=== PATIENT | male | born 1945 | race Caucasian/White ===

== ENCOUNTER 2017-09-26 12:33 | Inpatient (IN) | payer MEDICARE, OTHER ==
[~2017-09-26] VITALS: Ht 180.3 cm; Wt 66.0 kg
[~2017-09-26 12:33] MED LIST: ASPIRIN325 PO; ATORVASTATIN CA40 MG PO; BACLOFEN 10MG T10 MG PO; CARVEDILOL12.5 MG PO; CIPRO500 MG PO; COZAAR 25 MG TA25 M2 PO; FLAGYL500 MG PO; FLORASTOR250 MG PO; FOLIC ACID1 MG PO; HYDRALAZINE 2525 MG PO; LABETALOL HCL100 MG PO; LIORESAL 10 MG10 MG PO; LIPITOR40 MG PO; MIRALAX17 GM PO; PEPCID20 MG PO; PHENAZOPYRIDIN200 M2 PO; PROVIGIL 200 M200 M1 PO; SENNA PLUS TAB1 EACH PO; TRAMADOL 50 MG50 MG PO; TYLENOL325 MG PO; ZOLOFT50 MG PO
[2017-09-26 12:34] VITALS: BP 157/90
[2017-09-26] MEDS ORDERED: LIPITOR40 MG PO (13:11)
[2017-09-26] MEDS ORDERED: FOLIC ACID1 MG PO (13:11)
[2017-09-26] MEDS ORDERED: COZAAR 50 MG TA50 M1 PO (13:11)
[2017-09-26 13:13] LABS: ABSOLUTE BASOPHILS 0.1 thou/uL (0.0-0.2); ABSOLUTE EOSINOPHILS 0.2 thou/uL (0.0-0.7); ABSOLUTE LYMPHOCYTES 1.4 thou/uL (0.8-5.3); ABSOLUTE MONOCYTES 0.5 thou/uL (0.0-1.2); ABSOLUTE NEUTROPHILS 4.9 thou/uL (1.6-8.1); BASOPHILS 0.9 %; EOSINOPHILS 2.4 %; HEMATOCRIT 37.7 % (42.0-52.0); HEMOGLOBIN 12.5 gm/dL (14.0-18.0); LYMPHOCYTES 20.2 %; MCH 28.4 pg (26.0-34.0); MCV 85.9 fL (80.0-100.0); MONOCYTES 7.3 %; MPV 8.6 fl. (7.2-11.1); NUCLEATED RBCS 0 /100WBC; PLATELET COUNT* 160 thou/uL (150-400); POLYS 69.2 %; RBC 4.39 mil/uL (4.50-6.00); RDW-CV 13.8 % (10.5-14.5); WBC 7.1 thou/uL (4.0-11.0)
[2017-09-26 13:17] LABS: CALCIUM 8.2 mg/dL (8.5-10.1); CREATININE 1.1 mg/dL (0.6-1.3); POTASSIUM 3.4 mmol/L (3.5-5.1)
[2017-09-26 13:32] LABS: ALBUMIN 2.7 g/dL (3.4-5.0); MAGNESIUM 1.8 mg/dL (1.8-2.4); TOTAL BILIRUBIN 0.5 mg/dL (<0.1-1.0); TOTAL PROTEIN 6.8 g/dL (6.4-8.2); TROPONIN-I LEVEL 0.25 ng/mL (<0.06)
[2017-09-26 14:01] LABS: BE 1.3 mmol/L (-2 to +3); HCO3 24.6 mmol/L (22.0-26.0); PCO2 34.3 mmHg (35.0-45.0); pH 7.474 (7.340-7.450)
[2017-09-26 14:02] LABS: PO2 142.4 mmHg (75.0-100.0)
[2017-09-26 14:37] LABS: URINE COLOR YELLOW
[2017-09-26 14:39] LABS: URINE BILIRUBIN NEGATIVE (Negative); URINE BLOOD NEGATIVE (Negative); URINE CLARITY CLEAR; URINE GLUCOSE-RANDOM NEGATIVE (Negative); URINE KETONES NEGATIVE (Negative); URINE LEUKOCYTES-REFLEX NEGATIVE (Negative); URINE NITRITE-REFLEX NEGATIVE (Negative); URINE PROTEIN NEGATIVE (Negative); URINE SPECIFIC GRAVITY >= 1.030 (1.005-1.030); URINE UROBILINOGEN 0.2 E.U./dl (0.2-1.0)
[2017-09-26 16:46] VITALS: BP 188/95
[2017-09-26 16:52] VITALS: BP 197/89
[2017-09-26] MEDS ORDERED: LIORESAL 10 MG10 MG PO (17:28)
[2017-09-26] MEDS ORDERED: PEPCID20 MG PO (17:29)
[2017-09-26] MEDS ORDERED: LIDODERM1 EACH TRANSDERM (17:29)
[2017-09-26 20:00] VITALS: BP 191/97
[2017-09-26 21:49] LABS: ALBUMIN 2.5 g/dL (3.4-5.0); CALCIUM 7.7 mg/dL (8.5-10.1); CREATININE 0.9 mg/dL (0.6-1.3); POTASSIUM 3.6 mmol/L (3.5-5.1); TOTAL BILIRUBIN 0.5 mg/dL (<0.1-1.0); TOTAL PROTEIN 5.9 g/dL (6.4-8.2)
[2017-09-26 22:27] VITALS: BP 188/86
[2017-09-27] VITALS (7 sets, daily range): BP systolic 150–193; BP diastolic 79–92
[2017-09-27 05:47] LABS: HEMATOCRIT 37.3 % (42.0-52.0); MCH 27.9 pg (26.0-34.0); MPV 8.6 fl. (7.2-11.1); NUCLEATED RBCS 0 /100WBC
[2017-09-27 05:58] LABS: ABSOLUTE EOSINOPHILS 0.2 thou/uL (0.0-0.7); ABSOLUTE LYMPHOCYTES 1.1 thou/uL (0.8-5.3); ABSOLUTE MONOCYTES 0.4 thou/uL (0.0-1.2); ABSOLUTE NEUTROPHILS 5.4 thou/uL (1.6-8.1); BASOPHILS 0.7 %; EOSINOPHILS 2.7 %; HEMOGLOBIN 12.2 gm/dL (14.0-18.0); LYMPHOCYTES 15.3 %; MCHC 32.8 g/dL (28.0-37.0); MCV 85.2 fL (80.0-100.0); MONOCYTES 5.7 %; PLATELET COUNT* 139 thou/uL (150-400); POLYS 75.6 %; RBC 4.38 mil/uL (4.50-6.00); WBC 7.1 thou/uL (4.0-11.0)
[2017-09-27 06:02] LABS: PREALBUMIN 15.6 mg/dL (18.0-35.7)
[2017-09-27 06:03] LABS: ANION GAP 10 mmol/L (7-16); BUN 17 mg/dL (7-18); CALCIUM 7.9 mg/dL (8.5-10.1); CHLORIDE 105 mmol/L (98-107); CHOLESTEROL 90 mg/dL (<200); CO2 27 mmol/L (21-32); CREATININE 0.8 mg/dL (0.6-1.3); GLUCOSE 117 mg/dL (70-99); HDL CHOLESTEROL 32 mg/dL (>40); LDL CHOLESTEROL 44 mg/dL (<100); MAGNESIUM 1.5 mg/dL (1.8-2.4); POTASSIUM 3.4 mmol/L (3.5-5.1); SODIUM 142 mmol/L (136-145); TC:HDL 2.8 Ratio (Not establshd); TRIGLYCERIDE 73 mg/dL (<150); VLDL 15 mg/dL (<40)
[2017-09-27 06:06] LABS: SERUM ASSESSMENT Clear
[2017-09-27 09:25] LABS: INR 1.3; PROTIME 12.3 Seconds (9.20-11.50)
--- NOTE | 2017-09-27 14:15 | EKG ---
[place] [address] ELECTROCARDIOGRAM REPORT Name: NADIA FLORES Room: [address] IN .R.#: [id number] Admission: 09/26/17 Attend Phys: Jose Reynolds MD Discharge: 09/27/17 Date of : 43 Report #: [id number] THIS REPORT FOR: //name// [facility] ED Test Date: 2017-09-26 Test Time: 12:36:15 Pat Name: NADIA FLORES Department: Room: [facility] Gender: Commercial Glazier: Jared MANCUSO : 1945 Requested By: Melba Davalos Order Number: [id number] : Nadia Bloom Measurements Intervals [place] Rate: 73 P: 28 [place]: 272 QRS: 23 QRSD: 88 T: 58 QT: 395 QTc: 436 Interpretive Statements Sinus rhythm Prolonged [place] interval Compared to ECG 06/03/2017 06:18:08 Myocardial infarct finding no longer present Electronically Signed On 09-27-2017 14:15:36 CVT RN by Nadia Bloom [email or web address] <ELECTRONICALLY SIGNED> By: Nadia Bloom MD, [facility] 09/27/17 5041 1236 1236 Nadia Bloom MD, [facility] /EPI
== END 2017-09-27 12:08 | disposition short-term general hospital (02) | DRG 64 ==
LOC: M.ERS 12:33 → M.ICU 15:27 → M.TBA-ER 15:27 → M.2W 16:40 → M.ICU 09-27 02:16
PROVIDERS: Personal Emergency Response Attendant; ADMIT Internal Medicine
DX: I62.9 Nontraumatic intracranial hemorrhage, unspecified (principal); G93.40 Encephalopathy, unspecified; I12.9 Hypertensive chronic kidney disease with stage 1 through stage 4 chronic kidney disease, or unspecified chronic kidney disease; N18.3 Chronic kidney disease, stage 3 (moderate); R47.01 Aphasia; R40.4 Transient alteration of awareness; E78.5 Hyperlipidemia, unspecified; Z87.891 Personal history of nicotine dependence; Z86.73 Personal history of transient ischemic attack (TIA), and cerebral infarction without residual deficits; Z79.82 Long term (current) use of aspirin; Z79.899 Other long term (current) drug therapy

== ENCOUNTER 2018-08-07 06:35 | Inpatient (IN) | payer MEDICARE, OTHER, MEDICAID ==
[2018-08-07] VITALS (17 sets, daily range): BP systolic 82–122; BP diastolic 46–77
[~2018-08-07] VITALS: Ht 152.4 cm; Wt 70.8 kg
[~2018-08-07 06:35] MED LIST changes: +COZAAR 50 MG TA50 M1 PO; +LIDODERM1 EACH TRANSDERM
[2018-08-07 07:00] LABS: BE -4.6 mmol/L (-2 to +3); HCO3 18.7 mmol/L (22.0-26.0); PCO2 28.9 mmHg (35.0-45.0); pH 7.429 (7.340-7.450)
[2018-08-07 07:13] LABS: URINE BLOOD 2+ (Negative); URINE CLARITY CLEAR; URINE COLOR YELLOW; URINE GLUCOSE-RANDOM NEGATIVE (Negative); URINE KETONES 1+ (Negative); URINE NITRITE-REFLEX NEGATIVE (Negative); URINE PROTEIN 1+ (Negative); URINE SPECIFIC GRAVITY >= 1.030 (1.005-1.030); URINE UROBILINOGEN 0.2 E.U./dl (0.2-1.0)
[2018-08-07 07:16] LABS: ICTOTEST (BILI CONFIRMATORY) Positive (Negative); URINE BILIRUBIN 1+ (Negative); URINE LEUKOCYTES-REFLEX 2+ (Negative)
[2018-08-07] MEDS ORDERED: SENNA PLUS TAB1 EACH PO (07:20)
[2018-08-07] MEDS ORDERED: LAXATIVE SUPPOS10 MG RECTAL (07:20)
[2018-08-07] MEDS ORDERED: MILK OF MA2400 MG/10 PO (07:20)
[2018-08-07] MEDS ORDERED: ASPER-FLEX85 GM TOP (07:21)
[2018-08-07] MEDS ORDERED: CLONIDINE0.1 TOP (07:21)
[2018-08-07] MEDS ORDERED: NORVASC5 MG PO (07:21)
[2018-08-07 07:25] LABS: CASTS None Seen /LPF (None Seen); CRYSTALS None Seen /LPF (None Seen); MUCUS None Seen strn/LPF (None Seen); SQUAMOUS 0-3 Few /LPF (0-3); URINE RBC 3-10 Few /HPF (0-2); URINE WBC-REFLEX 6-15 Few /HPF (0-5)
[2018-08-07 07:25] LABS: ABSOLUTE MONOCYTES 0.5 thou/uL (0.0-1.2); ABSOLUTE NEUTROPHILS 3.8 thou/uL (1.6-8.1); BASOPHILS 0.4 %; EOSINOPHILS 0.2 %; HEMATOCRIT 34.9 % (42.0-52.0); HEMOGLOBIN 11.2 gm/dL (14.0-18.0); LYMPHOCYTES 19.5 %; MCH 28.4 pg (26.0-34.0); MCHC 32.1 g/dL (28.0-37.0); MCV 88.2 fL (80.0-100.0); MONOCYTES 8.9 %; MPV 8.1 fl. (7.2-11.1); NUCLEATED RBCS 0 /100WBC; PLATELET COUNT* 126 thou/uL (150-400); RBC 3.95 mil/uL (4.50-6.00); RDW-CV 14.7 % (10.5-14.5); WBC 5.3 thou/uL (4.0-11.0)
[2018-08-07 07:34] LABS: CALCIUM 7.7 mg/dL (8.5-10.1); CREATININE 3.2 mg/dL (0.6-1.3); POTASSIUM 4.4 mmol/L (3.5-5.1)
[2018-08-07 07:35] LABS: APTT 34.1 Seconds (25.0-31.3); INR 1.3; PROTIME 13.3 Seconds (9.20-11.50)
[2018-08-07 07:57] LABS: ALBUMIN 2.5 g/dL (3.4-5.0); CK-MB MASS 0.6 ng/mL (<0.5-3.6); TOTAL BILIRUBIN 0.5 mg/dL (<0.1-1.0); TOTAL PROTEIN 6.3 g/dL (6.4-8.2); TROPONIN-I LEVEL 0.37 ng/mL (<0.06)
--- NOTE | 2018-08-07 08:05 | NUR ---
TX BEING GIVEN AT THIS TIME
--- NOTE | 2018-08-07 09:57 | NUR ---
PICC LINE PLACED AT THIS TIME
[2018-08-07 10:46] LABS: PHOSPHORUS* 1.1 mg/dL (2.5-4.9)
[2018-08-07 10:50] LABS: MAGNESIUM 0.3 mg/dL (1.8-2.4)
[2018-08-07 11:53] LABS: MAGNESIUM 1.2 mg/dL (1.8-2.4); PHOSPHORUS* 3.2 mg/dL (2.5-4.9)
--- NOTE | 2018-08-07 12:47 | NUR ---
RIGHT BASILIC VESSEL ACCESSED FOR TRIPLE LUMEN PICC. LINE PRE-TRIMMED TO 39 CM AND ADVANCED TO THE ZERO RAYO WITH NO RESISTANCE MET. UPPER ARM CIRCUMFERENCE ABOVE INSERTION SITE= 11 1/2". SHERLOCK MAGNET AND 3CG CONFIRMATION OF TIP TERMINATION (OK) WAVE SPIKE. INSERTION SITE DRESSED, STYLET REMOVED AND REPORT GIVEN TO VANDANA STILES.
--- NOTE | 2018-08-07 16:53 | 2DMMODE ---
[place] [address] 2 D/M-MODE ECHOCARDIOGRAM Name: NADIA FLORES Room: [address] [place] [facility] [id number] Admission: 08/07/18 Attend Phys: Andrews Norton MD Discharge: Date of : 43 Date of Service: 08/07/18 1652 Report #: [id number] THIS REPORT FOR: //name// APPROVED REPORT Study performed: 08/07/2018 14:14:30 EXAM: Comprehensive 2D, Doppler, and color-flow Echocardiogram Patient Location: In-Patient Room #: [facility] Status: routine BSA: 1.87 HR: 55 bpm BP: 101/62 mmHg Rhythm: NSR Other Information Study Quality: Good Indications Elevated BNP 2D Dimensions IVSd: 15.61 (7-11mm) LVOT Diam: 19.93 (18-24mm) LVDd: 23.80 mm PWd: 13.05 (7-11mm) Ascending Ao: 33.80 (22-36mm) LVDs: 15.86 (25-40mm) Aortic Root: 35.88 mm Volumes Left Atrial Volume (Systole) LA ESV Index: 28.80 mL/m2 Aortic Valve AoV Peak Shaq.: 1.07 m/s AO Peak Gr.: 4.56 mmHg LVOT Max P.81 mmHg AO Mean Gr.: 2.60 mmHg LVOT Mean P.31 mmHg LVOT Max V: 0.84 m/s AO V2 VTI: 15.97 cm LVOT Mean V: 0.53 m/s KARELY (VTI): 3.34 cm2 LVOT V1 VTI: 17.07 cm Mitral Valve E/A Ratio: 0.65 MV Decel. Time: 142.96 ms MV E Max Shaq.: 0.33 m/[place] [address] 2 D/M-MODE ECHOCARDIOGRAM Name: NADIA FLORES Room: [address] IN ..#: [id number] Admission: 08/07/18 Attend Phys: Andrews Norton MD Discharge: Date of : 43 Date of Service: 08/07/18 1652 Report #: [id number] MV PHT: 41.46 ms MVA (PHT): 5.31 cm2 TDI E/Lateral E': 3.67 E/Medial E': 4.13 Medial E' Shaq.: 0.08 m/s Lateral E' Shaq.: 0.09 m/s Pulmonary Valve PV Peak Shaq.: 0.92 m/s PV Peak Gr.: 3.36 mmHg Tricuspid Valve RAP Estimate: 10.00 mmHg TR Peak Gr.: 45.00 mmHg RVSP: 55.00 mmHg PA Pressure: 55.00 mmHg Left Ventricle The left ventricle is normal size. There is normal LV segmental wall motion. Moderate concentric left ventricular hypertrophy. Left ventricular systolic function is vigorous. LVEF is >70%. Transmitral Doppler flow pattern suggests impaired LV relaxation. Right Ventricle Right ventricle is dilated. The right ventricular systolic function is normal. Atria Left atrium is mildly dilated. Right atrium is mildly dilated. Aortic Valve The aortic valve is normal in structure. Trace aortic regurgitation. There is no aortic valvular stenosis. Mitral Valve The mitral valve is normal in structure. There is no mitral valve regurgitation noted. No evidence of mitral valve stenosis. Tricuspid Valve The tricuspid valve is normal in structure. Moderate tricuspid regurgitation. Moderate pulmonary hypertension. Pulmonary artery pressure estimated to be 60 mmHg. Pulmonic Valve The pulmonary valve is normal in structure[place] [address] 2 D/M-MODE ECHOCARDIOGRAM Name: NADIA FLORES Room: [address] IN [facility]#: [id number] Admission: 08/07/18 Attend Phys: Andrews Norton MD Discharge: Date of : 43 Date of Service: 08/07/18 1652 Report #: [id number] regurgitation. Great Vessels The aortic root is normal in size. IVC is dilated. Pericardium Small to moderate sized cirumferential effusion with no evidence of tamponade. <Conclusion> The left ventricle is normal size. Moderate concentric left ventricular hypertrophy. The left ventricle is normal size. Moderate concentric left ventricular hypertrophy. Left ventricular systolic function is vigorous. LVEF is >70%. Transmitral Doppler flow pattern suggests impaired LV relaxation. Right ventricle is dilated. Left atrium is mildly dilated. Right atrium is mildly dilated. Trace aortic regurgitation. Moderate tricuspid regurgitation. Moderate pulmonary hypertension. Pulmonary artery pressure estimated to be 60 mmHg. Small to moderate sized cirumferential effusion with no evidence of tamponade. <ELECTRONICALLY SIGNED> By: Paco Bae MD, FACC 08/07/181651 51 51 Paco Bae MD, FACC /INF
--- NOTE | 2018-08-07 17:29 | EKG ---
[place] [address] ELECTROCARDIOGRAM REPORT Name: NADIA FLORES Room: [address] ADM IN .R.#: [id number] Admission: 08/07/18 Attend Phys: Andrews Norton MD Discharge: Date of : 43 Report #: [id number] THIS REPORT FOR: //name// [facility] ED Test Date: 2018-08-07 Test Time: 06:40:50 Pat Name: NADIA FLORES Department: Room: [facility] Gender: M Category Planner: Syed AJ : 1945 Requested By: Victor Manuel Ayala Order Number: [id number] MD: Paco Bae Measurements Intervals [place] Rate: 66 P: 98 ID: [id number] QRS: 44 QRSD: 90 T: 7 QT: 456 QTc: 478 Interpretive Statements Sinus rhythm Borderline prolonged ID interval Probable anterior infarct, age indeterminate Compared to ECG 09/26/2017 12:36:15 Myocardial infarct finding now present Electronically Signed On 08-07-2018 17:29:06 POCKET OPERATOR by Paco Bae [email or web address] <ELECTRONICALLY SIGNED> By: Paco Bae MD, [facility] 08/07/18 1729 0640 0640 Paco Bae MD, [facility] /EPI
--- NOTE | 2018-08-07 17:36 | NUR ---
PATIENT PROGRESSING TOWARDS GOALS. BLOOD PRESSURES REMAIN SOFT, BUT MAP MAINAINED >65. LEVOPHED NOT NEEDED AT THIS TIME. FLUIDS INFUSING AT 100 ML/HR IN RIGHT UPPER ARM PICC LINE PER EMAR. MAGNESIUM UPON ARRIVAL WA 0.3, RECHECK FOR SUSPICION OF FALSE RESULT. RECHECK WAS 1.2. PER DR HOFF, 3GM MAGNESIUM GIVEN. RECHECK WNL. NO OTHER ELECTROLYTE ABNORMALITIES. PATIENT MORE ALERT, OPENS EYES. DOES SAY SOME WORDS AT THIS TIME. ANSWERS YES AND NO QUESTIONS. PATIENT TURNED Q2H TO MAINTAIN SKIN INTEGRITY. BOTTOM REMAINS INTACT AND BLANCHABLE. PATIENT INCONTIENT. FORMED LIGHT BROWN BOWEL MOVEMENTS X2 TODAY. PATIENT'S PRESENT THROUGHOUT SHIFT. STATED THAT WHEN SHE LEAVES, IF NURSING STAFF CALLS HER WHEN SHE LEAVES AND SHE DOES NOT ANSWER, SHE PREFERS THAT STAFF LEAVES A MESSAGE BECAUSE SOMTIMES SHE TURNS HER PHONE OFF. SHE DENIES CONCERNS ABOUT PATIENT'S CARE AT THIS TIME.
[2018-08-08] VITALS (10 sets, daily range): BP systolic 106–160; BP diastolic 65–94
[2018-08-08 02:27] LABS: ABSOLUTE MONOCYTES 0.7 thou/uL (0.0-1.2); BASOPHILS 0.7 %; EOSINOPHILS 0.3 %; HEMATOCRIT 31.9 % (42.0-52.0); HEMOGLOBIN 10.3 gm/dL (14.0-18.0); LYMPHOCYTES 14.6 %; MCH 28.7 pg (26.0-34.0); MCHC 32.3 g/dL (28.0-37.0); MCV 88.7 fL (80.0-100.0); MONOCYTES 10.3 %; MPV 8.6 fl. (7.2-11.1); NUCLEATED RBCS 0 /100WBC; PLATELET COUNT* 121 thou/uL (150-400); POLYS 74.1 %; RBC 3.59 mil/uL (4.50-6.00); WBC 6.8 thou/uL (4.0-11.0)
[2018-08-08 03:00] LABS: CALCIUM 7.5 mg/dL (8.5-10.1); CREATININE 2.3 mg/dL (0.6-1.3); MAGNESIUM 2.4 mg/dL (1.8-2.4); POTASSIUM 4.2 mmol/L (3.5-5.1)
[2018-08-08 03:02] LABS: TROPONIN-I LEVEL 1.21 ng/mL (<0.06)
--- NOTE | 2018-08-08 03:54 | NUR ---
PAGED CARDIOLOGY ABOUT CRITICAL TROP. PT CURRENTLY DENIES CHEST VINCENT. NO RYTHEM CHANGES ON MONITOR. REMAINS SR. BP 119/72.
--- NOTE | 2018-08-08 06:06 | NUR ---
PATIENT SLOWLY PROGRESSING TOWARDS GOALS. REMAINS NON-VERBAL BUT AROUSIBLE WITH ONE WORDED ANSWERS. AFEBRILE. PT TROP CH ELEVATED PAGED CARDIOLOGY. PT DENIES CHEST PAIN. NO ACUTE HEMODYNAMIC CHANGES. SR RHYTHM ON MONITOR WITH NO CHANGES. PT HAS SANABRIA IN PLACE URINE NOTED ON PAD WHEN TURNING. SANABRIA WAS IRRIGATED. WILL CONTINUE TO MONITOR. BED TO LOWEST POSITION. ALL BED RAILS UP PER PT SAFETY.
--- NOTE | 2018-08-08 10:45 | NUR ---
PT ADMITTED YESTERDAY WITH SEPSIS. NO FAMILY HERE AT THIS TIME, BUT WAS HERE YESTERDAY. PT IS FROM THE [facility] BED. PT IS TOTAL CARE FROM A PREVIOUS STROKE. SPOKE WITH TYRA AT [facility], PLAN IS FOR PT TO RETURN WHEN READY FOR DISCHARGE.
--- NOTE | 2018-08-08 12:33 | EKG ---
[place] [address] ELECTROCARDIOGRAM REPORT Name: SANDRANADIA Ba Room: [address] ADM IN .R.#: [id number] Admission: 08/07/18 Attend Phys: Andrews Norton MD Discharge: Date of : 43 Report #: [id number] THIS REPORT FOR: //name// [facility] Test Date: 2018-08-08 Test Time: 10:14:15 Pat Name: NADIA FLORES Department: Room: [address] Gender: M Tissue Technologist: : 1945 Requested By: Andrews Norton Order Number: [id number] Reading MD: Daniel Bravo Measurements Intervals [place] Rate: 61 P: 81 MO: 320 QRS: 36 QRSD: 84 T: 0 QT: 453 QTc: 457 Interpretive Statements Sinus rhythm Prolonged [place] interval Borderline T wave abnormalities Compared to ECG 08/07/2018 06:40:50 no change Electronically Signed On 08-08-2018 12:33:09 SENIOR NATIONAL ACCOUNT MANAGER by Daniel Bravo [email or web address] <ELECTRONICALLY SIGNED> By: Daniel Bravo MD, [facility] 08/08/18 1233 1014 1014 Daniel Bravo MD, FACC /EPI
[2018-08-09] VITALS: BP 160/85
[2018-08-09 02:28] LABS: ABSOLUTE EOSINOPHILS 0.1 thou/uL (0.0-0.7); ABSOLUTE MONOCYTES 0.7 thou/uL (0.0-1.2); ABSOLUTE NEUTROPHILS 5.4 thou/uL (1.6-8.1); BASOPHILS 0.3 %; EOSINOPHILS 1.4 %; HEMATOCRIT 31.3 % (42.0-52.0); HEMOGLOBIN 10.1 gm/dL (14.0-18.0); LYMPHOCYTES 13.8 %; MCH 28.5 pg (26.0-34.0); MCHC 32.1 g/dL (28.0-37.0); MCV 88.7 fL (80.0-100.0); MONOCYTES 10.2 %; MPV 8.8 fl. (7.2-11.1); NUCLEATED RBCS 0 /100WBC; PLATELET COUNT* 131 thou/uL (150-400); POLYS 74.3 %; RBC 3.53 mil/uL (4.50-6.00); RDW-CV 14.9 % (10.5-14.5); WBC 7.3 thou/uL (4.0-11.0)
[2018-08-09 02:38] LABS: CALCIUM 7.8 mg/dL (8.5-10.1); CREATININE 1.8 mg/dL (0.6-1.3); POTASSIUM 3.5 mmol/L (3.5-5.1)
[2018-08-09 04:00] VITALS: BP 160/80
--- NOTE | 2018-08-09 04:44 | NUR ---
patient progressing towards goals. pt complains of pain in bladder area he reaches for catheter when he is activley urinating. unable to specifically say what the pain feels like d/t his aphasia. changed toribio bc it was leaking around despite irragation and reinflating balloon. bladder scaned pt to make sure catheter was effective showed zero ml of urine in bladder. Placed new toribio pt continued to show signs of pain. no leakage around toribio seen at this time. pt could be experiencing bladder spasms. paged HIMs health information assistant. orders given. will continue to monitor pt. bed to lowest position. recieved q2h turns.
[2018-08-09 07:49] VITALS: BP 162/93
--- NOTE | 2018-08-09 10:37 | CON ---
[address] [address] CONSULTATION Name: NADIA FLORES Room: [address] IN M.R.#: [id number] Admission: 08/07/18 Attend Phys: Andrews Norton MD Discharge: Date of : 43 Report #: [id number] THIS REPORT FOR: //name// CC: Jose Norton DATE OF SERVICE: 08/08/2018 TYPE OF REPORT: Cardiology consultation. HISTORY OF PRESENT ILLNESS: The patient is a 72-year-old black male who I was asked to see in the hospital today after he had an abnormal troponin. The patient actually presented in September of this year with a hemorrhagic stroke and malignant hypertension. He was confused. He was transferred for possible neurosurgical intervention. He has been at [facility] since that time. The patient is nonverbal and bedridden. He has left hemiplegia. He was brought to the Emergency Room yesterday. He apparently was found unresponsive at the [facility]. Paramedics were called. He was aroused. He has had no other complaints. He was felt to be septic. On admission, he was hypotensive. He was given intravenous fluid. Troponin was borderline elevated. I was asked to see him for further evaluation and treatment. The patient has had no recent complaints of chest pain, shortness of breath or syncope. PAST MEDICAL HISTORY: He has actually had a previous stroke. He has had a history of hypertension. MEDICATIONS: [facility], he is on hydralazine, sertraline, losartan, Lipitor, carvedilol, baclofen and aspirin. SOCIAL HISTORY: He is . Former smoker. REVIEW OF SYSTEMS: He has had a history of amyloid anemia and chronic kidney disease. PHYSICAL EXAMINATION: GENERAL: Revealed elderly black male lying in bed. He would mumble a few words. VITAL SIGNS: Blood pressure 120/80, pulse 60 and he is afebrile. HEENT: He is anicteric. Conjunctivae pink. Mucous members appear dry. CHEST: Clear to auscultation. CARDIOVASCULAR: Regular rate and rhythm. ABDOMEN: Soft. EXTREMITIES: Had no edema. SKIN: Dry. Warm. NEUROLOGICAL: He cannot move his left [place] [address] CONSULTATION Name: NADIA FLORES Room: [address] IN [facility].#: [id number] Admission: 08/07/18 Attend Phys: Andrews Norton MD Discharge: Date of : 43 Report #: [id number] RADIOLOGICAL DATA: His ECG showed a sinus rhythm with nonspecific T-wave changes. His workup, he had an echocardiogram done yesterday that showed left ventricular hypertrophy, ejection fraction greater than 65%, biatrial enlargement, moderate pulmonary hypertension and small pericardial effusion. LABORATORY DATA: His lab work, sodium 145, BUN 42 and creatinine 2.3 and it was 1.5 in 2017. His albumin is 2.5. Troponin on admission was 0.37 and it was 1.21 this morning. Previous cholesterol was 90, LDL 44, triglycerides 33 and HDL 32. TSH 2.7. White blood cell count 6.8 and hematocrit 34.9. IMPRESSION AND RECOMMENDATIONS: 1. Cmu-CJ-qzxdajzzx myocardial infarction. Recommend a conservative approach. I would not recommend cardiac catheterization. I would add Plavix. 2. Sepsis. Source unclear. Possible urinary tract infection. 3. Hypertension. The patient has been on angiotensin receptor agustin, calcium agustin and clonidine. Medications are full due to low blood pressure. 4. Hyperlipidemia. The patient is on a statin drug. 5. Chronic kidney disease. 6. Previous stroke. <ELECTRONICALLY SIGNED> By: Daniel Bravo MD, FACC 08/09/18 1037 1106 2111Dchari Bravo MD, FACC /nt
[2018-08-09 11:42] VITALS: BP 161/95
[2018-08-09 15:38] VITALS: BP 194/103
[2018-08-09 20:00] VITALS: BP 165/100
[2018-08-10] VITALS: BP 176/99
[2018-08-10 04:00] VITALS: BP 185/99
--- NOTE | 2018-08-10 05:00 | NUR ---
ASSUMED CARE OF PATIENT AFTER REPORT AT 1930. PT A&0X3. NOT ORIENTED TO PLACE. SLURRING OF SPEECH AND LEFT SIDED WEAKNESS NOTED DUE TO PERVIOUS STROKE. VSS. PHYSICAL ASSESSMENT COMPLETED AND CHARTED. PT ON O2 AT 2L NC WITH 92% O2 SAT. PT TRACING SR 1ST DEG ON TELE. PICC LINE TO RIGHT UPPER ARM PATENT AND INTACT. MEDS GIVEN PER NOV. PT WITH SANABRIA TO DEPENDENT DRAIN. ABLE TO TOLERATE WATER AND ORANGE JUICE WELL. PT RESTED WELL ON BED. DENIES ANY PAIN OR SOA. TURNED PT EVERY 2 HOURS. CALL LIGHT WITHIN REACH. BED IN LOW POSITION. BED ALARM ON.
[2018-08-10 08:20] VITALS: BP 176/99
--- NOTE | 2018-08-10 11:52 | NUR ---
RECEIVED REPORT FROM TIFFANY AND ASSUMED CARE OF PT @ 6140.PT IS A/O X3,VSS,TRACING SR WITH 1ST DEGREE ON THE MONITOR.RIGHT UPPER ARM PICC PATENT WITH PPN INFUSING PER ORDERS.PT IS CALM AND COOPERATIVE WITH NO C/O PAIN AT TIME OF ASSESSMENT.PT IS BEDREST WITH Q2 HOUR POSITION CHANGES.PT LEFT RESTING IN BED WITH CALL LIGHT AND FALL PRECAUTIONS IN PLACE.WILL CONTINUE TO MONITOR.
[2018-08-10 11:59] VITALS: BP 179/97
[2018-08-10 15:54] VITALS: BP 182/109
--- NOTE | 2018-08-10 18:38 | NUR ---
VSS.CARDIAC MONITORING IN PLACE WITH NO CHANGES.PT REMAINS ON 3L O2 NC.IV PATENT WITH PPN INFUSING PER ORDERS.NPO STATUS. MARYAN PATENT AND SECURE.NO C/O PAIN.PT HAS SLEPT MOST OF SHIFT. Q2 HOUR POSITION CHANGES.HOURLY ROUNDING COMPLETED FOR PT SAFETY.CALL LIGHT AND FALL PRECAUTIONS IN PLACE.WILL CONTINUE TO MONITOR FOR DURATION OF SHIFT.
[2018-08-10 20:00] VITALS: BP 202/105
[2018-08-11] VITALS: BP 199/110
[2018-08-11 04:00] VITALS: BP 183/103
--- NOTE | 2018-08-11 04:24 | NUR ---
ASSUMED CARE OF PT AFTER REPORT AT 1930. PT A&OX3. NOT ORIENTED TO PLACE. VSS. PHYSICAL ASSESSMENT COMPLETED AND CHARTED. PT ON O2 AT 3L NC WITH 92% O2 SAT. PT TRACING SR/SB 1ST DEG ON TELE. PT BP 202/105- LABETALOL 10MG GIVEN PER NOV. RECHECKED BP 191/107. DR RILEY INFORMED WITH ORDER TO GIVE ANOTHER 10 MG OF LABETALOL. RECHECKED BP 199/110. PROVIDER INFORMED WITH NO NEW ORDER GIVEN. PT RESTED WELL ON BED. DENIES ANY PAIN OR DISCOMFORT. ABLE TO TOLERATE APPLE JUICE WELL. HOURLY ROUNDING OBSERVED. CALL LIGHT WITHIN REACH. BED IN LOW POSITION.
[2018-08-11 08:00] VITALS: BP 175/94
[2018-08-11 11:15] LABS: ABSOLUTE EOSINOPHILS 0.3 thou/uL (0.0-0.7); ABSOLUTE LYMPHOCYTES 0.9 thou/uL (0.8-5.3); ABSOLUTE MONOCYTES 0.5 thou/uL (0.0-1.2); ABSOLUTE NEUTROPHILS 3.9 thou/uL (1.6-8.1); BASOPHILS 0.5 %; EOSINOPHILS 5.5 %; HEMATOCRIT 27.2 % (42.0-52.0); HEMOGLOBIN 8.7 gm/dL (14.0-18.0); LYMPHOCYTES 16.6 %; MCH 28.7 pg (26.0-34.0); MCV 89.5 fL (80.0-100.0); MONOCYTES 8.2 %; MPV 8.4 fl. (7.2-11.1); NUCLEATED RBCS 0 /100WBC; PLATELET COUNT* 130 thou/uL (150-400); POLYS 69.2 %; RBC 3.03 mil/uL (4.50-6.00); RDW-CV 14.5 % (10.5-14.5); WBC 5.7 thou/uL (4.0-11.0)
--- NOTE | 2018-08-11 11:27 | NUR ---
RECEIVED REPORT FROM TIFFANY AND ASSUMED CARE OF PT @ 5934.PT IS A/OX3,BP ELEVATED @ 175/94.PT REMAINS ON 3L O2 NC.ASSESSMENT CHARTED.SANABRIA SECURE AND PATENT.RIGHT UPPER ARM PICC PATENT WITH PPN INFUSING PER ORDERS.PT IS CALM AND COOPERATIVE WITH NO C/O PAIN AT TIME OF ASSESSMENT.Q2 HOUR POSITION CHANGES COMPLETED.PT GOT CLEANED UP WITH NURSES AIDS.PT LEFT RESTING INBED WITH CALL LIGHT AND FALL PREACUTIONS IN PLACE.WILL CONTINUE TO MONITOR.
[2018-08-11 11:31] LABS: ALBUMIN 1.8 g/dL (3.4-5.0); CALCIUM 7.9 mg/dL (8.5-10.1); POTASSIUM 5.6 mmol/L (3.5-5.1); TOTAL BILIRUBIN 0.3 mg/dL (<0.1-1.0); TOTAL PROTEIN 5.2 g/dL (6.4-8.2)
[2018-08-11 11:32] LABS: CREATININE 0.8 mg/dL (0.6-1.3)
[2018-08-11 12:25] VITALS: BP 189/99
[2018-08-11 16:00] VITALS: BP 169/98
--- NOTE | 2018-08-11 18:34 | NUR ---
VSS.CARDIAC MONITORING IN PLACE WITH NO CHANGES.PT REMAINS ON 3L O2 NC.NO C/O PAIN.PT ADVANCED TO PUREE/THIN LIQUID DIET AND PILLS CRUSHED IN APPLESAUCE WITH NO COMPLICATIONS. UPPER RIGHT ARM PICC PATENT AND SALINE LOCKED.SANABRIA SECURE AND PATENT.Q2 HOUR POSITION CHANGES COMPLETED.HOURLY ROUNDING COMPLETED FOR PT SAFETY.CALL LIGHT AND FALL PRECAUTIONS IN PLACE.WILL CONTINUE TO MONITOR FOR DURATION OF SHIFT.
[2018-08-11 20:00] VITALS: BP 162/84
[2018-08-12] VITALS: BP 155/75
[2018-08-12 04:00] VITALS: BP 157/77
[2018-08-12 05:23] LABS: ABSOLUTE EOSINOPHILS 0.3 thou/uL (0.0-0.7); ABSOLUTE MONOCYTES 0.5 thou/uL (0.0-1.2); ABSOLUTE NEUTROPHILS 3.5 thou/uL (1.6-8.1); BASOPHILS 0.5 %; EOSINOPHILS 5.9 %; HEMATOCRIT 27.5 % (42.0-52.0); HEMOGLOBIN 9.1 gm/dL (14.0-18.0); LYMPHOCYTES 18.1 %; MCH 28.8 pg (26.0-34.0); MCHC 33.2 g/dL (28.0-37.0); MCV 86.8 fL (80.0-100.0); MONOCYTES 10.1 %; MPV 8.5 fl. (7.2-11.1); NUCLEATED RBCS 0 /100WBC; PLATELET COUNT* 141 thou/uL (150-400); POLYS 65.4 %; RBC 3.16 mil/uL (4.50-6.00); RDW-CV 14.3 % (10.5-14.5); WBC 5.4 thou/uL (4.0-11.0)
[2018-08-12 05:36] LABS: CALCIUM 8.1 mg/dL (8.5-10.1); CREATININE 0.8 mg/dL (0.6-1.3)
--- NOTE | 2018-08-12 05:39 | NUR ---
ASSUMED CARE OF PT AFTER REPORT AT 1930. PT A&OX3. NOT ORIENTED TO TIME. VSS. PHYSICAL ASSESSMENT COMPLETED AND CHARTED. PT ON AT 3L NC WITH 93% O2 SAT. PT TRACING SR/SB/1ST DEG ON TELE.PT WITH SANABRIA TO DEPENDENT DRAIN. PT RESTED WELL ON BED. RIGHT UPPER ARM PICC LINE PATENT AND INTACT. PT TURNED EVERY 2 HOURS. DENIES CHEST PAIN OR SOA. CALL LIGHT WITHIN REACH. BED IN LOW POSITION. BED ALARM ON.
[2018-08-12 05:42] LABS: POTASSIUM 3.3 mmol/L (3.5-5.1)
[2018-08-12 07:55] VITALS: BP 158/83
--- NOTE | 2018-08-12 10:40 | NUR ---
RECEIVED REPORT FROM TIFFANY AND ASSUMED CARE OF PT @ 4338.PT IS A/O X3 BUT MOSTLY NONVERBAL BY CHOICE.VSS,TRACING SB WITH 1ST DEGREE ON MONITOR.RIGHT UPPER ARM PICC SECURE AND PATENT.SANABRIA SECURE AND PATENT.ASSESSMENT CHARTED.PT IS CALM AND COOPERATIVE WITH NO C/O PAIN AT TIME OF ASSESSMENT.PT IS BEDREST WITH Q2 HOUR POSITION CHANGE.PT LEFT RESTING IN BED WITH CALL LIGHT AND FALL PRECAUTIONS IN PLACE.WILL CONTINUE TO MONITOR.
[2018-08-12 12:00] VITALS: BP 147/76
--- NOTE | 2018-08-12 12:21 | NUR ---
Anticipate that Pt will be ready to dc back to [facility] tomorrow. spoke with and Pt, no plans for a peg tube. Plan to have assistance with meals for Pt today, possible discussion of palliative v. hospice with Pt/ tomorrow.
--- NOTE | 2018-08-12 14:50 | NUR ---
PT MADE MED-SURG STATUS.PT TO TRANSFER TO [facility] ROOM 107.REPORT CALLED TO IMELDA.MESSAGE LEFT FOR ABOUT TRANSFER.ALL PERSONAL BELONGINGS PACKED AND TAKEN WITH PT.PT TRANSPORTED BY BED.
--- NOTE | 2018-08-12 15:00 | NUR ---
PT ARRIVE ON UNIT AT 1500. AGREE WITH PREVIOUS ASSESSMENT. PT REFUSED PAIN AND TURNS.
[2018-08-12 15:22] VITALS: BP 160/113
--- NOTE | 2018-08-12 17:54 | NUR ---
PT A&Ox3. PICC LINE SALINE LOCKED AND INTACT. SANABRIA IN PLACE AND PATENT. HAS BEEN SLEEPING SINCE ARRIVED. DENIES PAIN. REFUSED TURNS. REFUSED FOOD. WILL REPLY TO YES AND NO QUESTIONS. FALL PRECAUTIONS IN PLACE. CALL LIGHT WITHIN REACH. WILL CONTINUE TO MONITOR.
[2018-08-12 19:45] VITALS: BP 183/86
--- NOTE | 2018-08-13 04:27 | NUR ---
PATIENT HAS REMAINED ALERT AND ORIENTED X 4 THROUGHOUT THE SHIFT AND RESTING QUIETLY ON HOURLY ROUNDS. UP TO BR FOR ADEQUATE VOIDS. TRANSFERING WITH SBA. RIGHT UE IMMOBILZER MAINTAINED. CIRCULATION AND SENSATION REMAIN INTACT TO RIGHT FINGERS. O2 WAS APPLIED AT FIRST ROUNDS FOR AWAKE O2 SAT AT 88%. CONTINUOUS OXIMETRY OVERNIGHT. SATS WITHIN NORMAL THEREAFTER ON SPOT CHECKS. RT TREATMENT PER ORDERS. MEDICATED FOR PAIN X 4, UTILIZING BOTH IV AND ORAL MEDICATIONS. PATIENT RESTS WELL BETWEEN MEDS, BUT, REPORTS PAIN LEVELS 6/10-10/10 PRIOR TO MEDS. ORAL INTAKE WITHOUT NAUSEA. VITAL SIGNS STABLE. SON AT BEDSIDE. CONTINUE TO MONITOR.
--- NOTE | 2018-08-13 04:33 | NUR ---
PATIENT ORIENTED TO NAME. OPENS EYES WITH STIMULATION AND DID SAY A FEW WORDS TO STAFF AT PROMPTING. HS MEDS CRUSHED WITH PUDDING. TOOK THEM INTO TO MOUTH AND SWALLOWED SIPS OF WATER WITH STRAW BUT NOT THE MEDS. PATIENT SNEEEZED OR COUGHED AND THEY WHERE SPEWED ALL OVER THE BED. THE REMAINDER OF WHAT WAS IN HIS MOUTH HE SPIT OUT IN A WASHCLOTH. TURNED Q2H. SM/MOD INCONT BM. ADEQUATE URINE OUTPUT PER SANABRIA. HYPERTENSION. CONTINUE TO MONITOR.
[2018-08-13 06:07] LABS: CALCIUM 8.1 mg/dL (8.5-10.1); CREATININE 0.8 mg/dL (0.6-1.3); POTASSIUM 3.6 mmol/L (3.5-5.1)
--- NOTE | 2018-08-13 14:00 | NUR ---
CALLED PT.'S ,PURNIMA EARLIER AND DISCUSSED RETURN WITH HOSPICE TO [facility] TODAY. SHE WAS AGREEABLE. SHE DECLINED FEEDING TUBE YESTERDAY. NAVEEN CONTACTED [facility]. SHE SAID SHE CANNOT ACCEPT PT.TODAY. THEY HAVE ACCEPTED THEIR ALOTTED NUMBER OF PT.S TODAY. NOTIFIED AND NAVEEN CALLED PURNIMA,PT.S ON PHONE TO INFORM. SHE IS NOT SURE WHO TO USE FOR HOSPICE BUT THE PEOPLE FROM HOSPICE OVER AT [facility] ALL SEEM NICE. SHE EVENTUALLY CHOSE [facility]. SHE IS NOT PLANNING ON COMING TO HOSPITAL TODAY. SHE WOULD LIKE FOR LUXORA TO CALL HER ON PHONE TODAY. REFERRAL FAXED TO [facility] [phone] AND SPOKE WITH HIM AT [phone]. SOMEONE WILL CALL PURNIMA FROM [facility]. [facility] SAID THEY WOULD LIKE PT.TO THEIR FACILITY BY [phone] IF POSSIBLE. AMBULANCE FORM PLACED IN FRONT OF CHART. IT WILL NEED TO BE FAXED TO [facility] AND THEN CALL TO ARRANGE TIME. OUTSIDE OF HOSPITAL DNR FORM SIGNED BY . WILL NEED TO SIGN WHEN SHE COMES TO HOSPITAL TOMORROW. ALSO ON FRONT OF CHART.
--- NOTE | 2018-08-13 18:06 | NUR ---
PT TRANSFERED TO 3W 1630. CONTINUED CARE OF PT ON 3W. STABLE FOLLOWING TRANSFER. PT IS ALERT AND OPENS EYES TO VOICE. BP WAS HIGH THROUGHOUT THE SHIFT, 184/94. PULSE 57, 2L OF OXYGEN 90%, TEMP 99.3. DENIED PAIN DURING SHIFT. CLONIDINE SWITCHED FROM 0.2MG TO 0.3MG. WILL NOT TAKE PO MEDS. PICC IN UPPER RIGHT ARM, SALINE LOCKED. SANABRIA IN PLACE, PATENT. PLANS TO DISCHARGE TO [facility] 08/14/18. FALL PRECAUTIONS IN PLACE. CALL LIGHT WITHIN REACH. WILL CONTINUE TO MONITOR.
[2018-08-13 20:35] VITALS: BP 157/77
--- NOTE | 2018-08-14 05:01 | NUR ---
PATIENT HAS REMAINED ORIENTED TO SELF. RESPONDS TO STIMULI BUT DOES NOT ALWAYS SPEAK. HS MEDS TAKEN CRUSHED, MIXED WITH WATER AND SPOON FED FOLLOWED BY MORE SPOON FED SIPS WATER WITHOUT MEDS/ MOUTH CARE. TOLERATED THIS METHOD OF ADMINISTRATION. TURNED Q2H. NO BM'S. INCREASE IN REDNESS AT RIGHT GROIN. INTER-DRY PROVIDED AFTER KIKE-CARE. CHAPPED ELBOWS. CREAM APPLIED. VITAL SIGNS STABLE. BED ALARM ON FOR SAFETY BUT HAS MADE TO ATTEMPTS TO MOVE SELF. CONTINUE TO MONITOR.
[2018-08-14 08:00] VITALS: BP 142/70
[2018-08-14 09:55] VITALS: BP 142/70
--- NOTE | 2018-08-14 10:10 | NUR ---
ASSESSMENT COMPLETE, UNABLE TO SWALLOW MEDS, REFUSING ATTEMPTS. ORDERS RECEIVED FOR TRANSFER TO [facility], TRANSPORT ARRANGED, TRANSPORTED VIA GURNEY, NON [facility] AMBULANCE, CONDITION STABLE, REPORT TO SCOTT ST[facility]ES.
--- NOTE | 2018-08-20 14:14 | CON ---
[address] [address] CONSULTATION Name: NADIA FOLRES Room: [address] IN M.R.#: [id number] Admission: 08/07/18 Attend Phys: Andrews Norton MD Discharge: 08/14/18 Date of : 43 Report #: [id number] THIS REPORT FOR: //name// CC: Jose Norton DATE OF SERVICE: 08/13/2018 CHIEF COMPLAINT: Toenail dystrophy with onychomycosis. HISTORY OF PRESENT ILLNESS: The patient admitted for sepsis with UTI. He has had prior multiple CVAs. He has dystrophic toenails consistent with onychomycosis that are painful to palpation. PHYSICAL EXAMINATION: Toenails are severely dystrophic, elongated and painful to palpation consistent with onychomycosis. No paronychia noted. He has palpable dorsalis pedis and posterior tibial pulses. No keratoses noted. IMPRESSION: Onychomycosis. PLAN: Toenails were manually mechanically debrided x 10. <ELECTRONICALLY SIGNED> By: Jan Hill DPM 08/20/18 1414 1538 [id number] Hill DPM /nt
== END 2018-08-14 10:14 | disposition hospice, home (50) | DRG 871 ==
LOC: M.ERS 06:35 → M.ICU 07:51 → M.TBA-ER 07:51 → M.ICU 10:15 → M.2W 08-09 14:35 → M.ORTHSURG 08-12 15:05 → M.3W 08-13 16:25
PROVIDERS: Family Medicine; ADMIT Family Medicine
PROC: 05HB33Z Insertion of Infusion Device into Right Basilic Vein, Percutaneous Approach (ICD-10-PCS; principal; 2018-08-07)
PROC: 0HBRXZZ Excision of Toe Nail, External Approach (ICD-10-PCS; 2018-08-13)
DX: A41.9 Sepsis, unspecified organism (principal); I21.4 Non-ST elevation (NSTEMI) myocardial infarction; J96.20 Acute and chronic respiratory failure, unspecified whether with hypoxia or hypercapnia; N17.9 Acute kidney failure, unspecified; N39.0 Urinary tract infection, site not specified; E87.1 Hypo-osmolality and hyponatremia; I69.352 Hemiplegia and hemiparesis following cerebral infarction affecting left dominant side; R65.20 Severe sepsis without septic shock; E78.5 Hyperlipidemia, unspecified; B35.1 Tinea unguium; N18.3 Chronic kidney disease, stage 3 (moderate); R13.10 Dysphagia, unspecified; E86.0 Dehydration; I12.9 Hypertensive chronic kidney disease with stage 1 through stage 4 chronic kidney disease, or unspecified chronic kidney disease; Z28.21 Immunization not carried out because of patient refusal; Z87.891 Personal history of nicotine dependence; I69.320 Aphasia following cerebral infarction; Z79.899 Other long term (current) drug therapy

== ENCOUNTER 2018-12-25 15:42 | Inpatient (IN) | payer MEDICARE, OTHER, MEDICAID ==
[~2018-12-25] VITALS: Ht 172.7 cm; Wt 74.3 kg
[~2018-12-25 15:42] MED LIST changes: +ASPER-FLEX85 GM TOP; +ASPIR 8181 MG PO; +CATAPRES-TTS 11 EACH TRANSDERM; +LAXATIVE SUPPOS10 MG RECTAL; +MILK OF MA2400 MG/10 PO; +NORVASC5 MG PO
[2018-12-25 15:43] VITALS: BP 141/87
[2018-12-25] MEDS ORDERED: CLARITIN10 MG PO (16:05)
[2018-12-25] MEDS ORDERED: XARELTO20 MG PO (16:05)
[2018-12-25] MEDS ORDERED: NORVASC5 MG PO (16:06)
[2018-12-25 16:13] LABS: ABSOLUTE LYMPHOCYTES 0.7 thou/uL (0.8-5.3); ABSOLUTE MONOCYTES 0.6 thou/uL (0.0-1.2); BASOPHILS 0.5 %; HEMATOCRIT 38.1 % (42.0-52.0); HEMOGLOBIN 12.4 gm/dL (14.0-18.0); LYMPHOCYTES 11.2 %; MCH 27.8 pg (26.0-34.0); MCHC 32.7 g/dL (28.0-37.0); MONOCYTES 9.8 %; MPV 8.4 fl. (7.2-11.1); NUCLEATED RBCS 0 /100WBC; PLATELET COUNT* 146 thou/uL (150-400); POLYS 78.5 %; RBC 4.48 mil/uL (4.50-6.00); WBC 6.4 thou/uL (4.0-11.0)
[2018-12-25 16:21] LABS: APTT 47.8 Seconds (25.0-31.3); INR 1.3; PROTIME 13.4 Seconds (9.20-11.50)
[2018-12-25 16:23] LABS: INFLUENZA B ANTIGEN None Detected (None Detect)
[2018-12-25 16:28] LABS: ANION GAP 8 mmol/L (7-16); BUN 31 mg/dL (7-18); CALCIUM 8.6 mg/dL (8.5-10.1); CHLORIDE 104 mmol/L (98-107); CO2 31 mmol/L (21-32); CREATININE 1.8 mg/dL (0.6-1.3); GLUCOSE 104 mg/dL (70-99); POTASSIUM 3.9 mmol/L (3.5-5.1); SODIUM 143 mmol/L (136-145); TROPONIN-I LEVEL <0.06 ng/mL (<0.06)
[2018-12-25 16:33] LABS: ALBUMIN 2.9 g/dL (3.4-5.0); ALKALINE PHOSPHATASE 110 U/L (46-116); CK-MB MASS 0.6 ng/mL (<0.5-3.6); NT-PRO BRAIN NAT PEPTIDE 550 pg/mL (<300); SGOT 22 U/L (15-37); SGPT 15 U/L (30-65); TOTAL BILIRUBIN 0.4 mg/dL (<0.1-1.0); TOTAL PROTEIN 7.8 g/dL (6.4-8.2)
[2018-12-25 16:46] LABS: URINE BILIRUBIN NEGATIVE (Negative); URINE BLOOD 3+ (Negative); URINE CLARITY CLEAR; URINE COLOR YELLOW; URINE GLUCOSE-RANDOM NEGATIVE (Negative); URINE KETONES NEGATIVE (Negative); URINE LEUKOCYTES-REFLEX 1+ (Negative); URINE NITRITE-REFLEX NEGATIVE (Negative); URINE PROTEIN TRACE (Negative); URINE SPECIFIC GRAVITY 1.015 (1.005-1.030); URINE UROBILINOGEN 0.2 E.U./dl (0.2-1.0)
[2018-12-25 16:52] LABS: BACTERIA-REFLEX >30 Many /HPF (None Seen)
[2018-12-25 16:53] LABS: MUCUS None Seen strn/LPF (None Seen); SQUAMOUS 0-3 Few /LPF (0-3); URINE RBC 3-10 Few /HPF (0-2)
[2018-12-25 16:54] LABS: WBC CLUMPS Few (None Seen)
[2018-12-25 16:55] LABS: TRANSITIONAL EPITHEL CELL 0-3 Few /LPF (None Seen)
[2018-12-25 16:56] LABS: CASTS None Seen /LPF (None Seen); CRYSTALS None Seen /LPF (None Seen)
[2018-12-25 21:27] VITALS: BP 111/66
[2018-12-26 04:00] VITALS: BP 136/79
--- NOTE | 2018-12-26 07:50 | NUR ---
REPORT RECEIVED FROM FOREIGN STILES IN ED @ 2045. PT ARRIVED TO ROOM 203 @2109. TRANSFERED FROM CART TO BED PER 2 STAFF (CONTRACTED). PT IS ORIENTED TO SELF. MINIMAL VERBAL RESPONSE. CONTRACTED/STIFF PER BASELINE. PT WAS ABLE TO ANSWER YES/NO AT TIMES. HISTORY PER OLD MEDICAL RECORD. PT INCONTINENT OF URINE THIS SHIFT. ROOM ACROSS FROM NURSES STATION. CALL LIGHT IN REACH AND HOURLY ROUNDING FOR SAFETY.
[2018-12-26 08:00] VITALS: BP 131/70
--- NOTE | 2018-12-26 10:39 | EKG ---
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 Hanna : 1945 Requested By: De Leblanc Order Number: [id number] MD: Daniel Bravo Measurements Intervals [place] Rate: 104 P: 269 SD: 226 QRS: 18 QRSD: 75 T: 61 QT: 415 QTc: 546 Interpretive Statements Sinus tachycardia Prolonged SD interval Probable septal infarct, old Prolonged QT interval Baseline wander in lead(s) V1,V2 Compared to ECG 08/08/2018 10:14:15 Prolonged QT interval now present Sinus rhythm no longer present Electronically Signed On 12-26-2018 10:38:53 CDT by Daniel Bravo [email or web address] <ELECTRONICALLY SIGNED> By: Daniel Bravo MD, FACC 12/26/18 1038 1623 1623 Daniel Bravo MD, [facility] /EPI
[2018-12-26 11:27] LABS: HEMATOCRIT 33.9 % (42.0-52.0); HEMOGLOBIN 11.1 gm/dL (14.0-18.0); MCH 28.2 pg (26.0-34.0); MCHC 32.7 g/dL (28.0-37.0); MCV 86.2 fL (80.0-100.0); NUCLEATED RBCS 0 /100WBC; PLATELET COUNT* 123 thou/uL (150-400); RBC 3.93 mil/uL (4.50-6.00); RDW-CV 16.5 % (10.5-14.5); WBC 6.3 thou/uL (4.0-11.0)
[2018-12-26 11:33] LABS: CREATININE 1.4 mg/dL (0.6-1.3); MAGNESIUM 1.8 mg/dL (1.8-2.4); PHOSPHORUS* 3.1 mg/dL (2.5-4.9); POTASSIUM 3.8 mmol/L (3.5-5.1)
[2018-12-26 12:11] VITALS: BP 114/60
[2018-12-26 12:13] LABS: ABSOLUTE LYMPHOCYTES 0.7 thou/uL (0.8-5.3); ABSOLUTE MONOCYTES 0.3 thou/uL (0.0-1.2); ABSOLUTE NEUTROPHILS 5.3 thou/uL (1.6-8.1); ATYPICAL LYMPHS 1 %; PLATELET ESTIMATE ADEQUATE
[2018-12-26 15:51] VITALS: BP 129/76
--- NOTE | 2018-12-26 16:43 | NUR ---
WOUND CARE NOTE: CONSULT RECEIVED FOR RISK LEVEL PATIENT WITH A STEVEN OF 13, MULTIPLE CO-MORBIDITIES SUCH INCONTINENCE AND HYPERTENSION. CARE PLAN IN PLACE, RECOMMEND ADDING A LOW AIR LOSS MATTRESS TO ASSIST WITH PRESSURE ULCER PREVENTION. WOULD ALSO RECOMMEND CONTINUING WITH Q2 HOUR TURNING. RECOMMEND LIMIT LAYERS OF LINEN UNDER PATIENT BARRIER OINTMENT BID AND PRN INCONTINENCE NO BRIEFS IN BED ENCOURAGE NUTRTION/HYDRATION LOW AIR LOSS MATTRESS-ORDERED Q2 HOUR TURNS LIMIT HOB <30 DEGREES
--- NOTE | 2018-12-27 04:25 | NUR ---
ASSUMED PT CARE @ 1930. SLIGHT CONGESTED COUGH NOTE WHEN PT TURNED. PT GIVEN TYLENOL FOR FEVER. EFFECTIVE. INCONTINENT OF 2 BMS THIS SHIFT. PT ALSO ANSWERING IN COMPLETE SENTENCES. ALERT AND ORIENTED TO EVERYTING BUT PLACE. RE-ORIENTED NEEDED. CALL LIGHT IN REACH. HOURLY ROUNDING FOR SAFETY.
[2018-12-27 04:45] LABS: ABSOLUTE LYMPHOCYTES 1.5 thou/uL (0.8-5.3); ABSOLUTE MONOCYTES 0.6 thou/uL (0.0-1.2); BASOPHILS 0.4 %; EOSINOPHILS 0.5 %; HEMATOCRIT 29.4 % (42.0-52.0); HEMOGLOBIN 9.5 gm/dL (14.0-18.0); LYMPHOCYTES 35.7 %; MCHC 32.5 g/dL (28.0-37.0); MCV 86.4 fL (80.0-100.0); MONOCYTES 14.9 %; MPV 8.8 fl. (7.2-11.1); NUCLEATED RBCS 0 /100WBC; PLATELET COUNT* 114 thou/uL (150-400); POLYS 48.5 %; RDW-CV 16.4 % (10.5-14.5); WBC 4.1 thou/uL (4.0-11.0)
[2018-12-27 05:01] LABS: CALCIUM 7.7 mg/dL (8.5-10.1); CREATININE 1.1 mg/dL (0.6-1.3); POTASSIUM 3.4 mmol/L (3.5-5.1)
[2018-12-27 08:00] VITALS: BP 124/64
[2018-12-27 11:45] VITALS: BP 148/73
--- NOTE | 2018-12-27 18:25 | NUR ---
PATINET RESTING IN BED. VITAL SIGNS STABLE. PATINET HAS BEEN CONVERSATIONAL TODAY. HOURLY ROUNING COMPETED FOR PATIENT SAFETY.
[2018-12-27 20:00] VITALS: BP 125/67
[2018-12-28] VITALS: BP 126/72
--- NOTE | 2018-12-28 02:04 | NUR ---
ASSUMED PT CARE @ 1930. PT RESTING IN BED. AFEBRILE THIS SHIFT. RANDOM CONGESTED COUGH. TYLENOL EFFECTIVE FOR PAIN. PT RESTING COMFORTABLE. CALL LIGHT IN REACH. HOURLY ROUNDING FOR SAFETY.
[2018-12-28 03:53] VITALS: BP 123/64
[2018-12-28 08:00] VITALS: BP 147/76
--- NOTE | 2018-12-28 09:45 | NUR ---
[id number] ASSUMED CARE OF PATIENT. PLEASE SEE DOCUMENTED ASSESSMENT. PT IN DROPLET PRECAUTIONS.SOMNALENT WHEN NOT INTERACTIVE
--- NOTE | 2018-12-28 09:54 | NUR ---
DR SONG NOTIFIED OF CONTINUED BRADYCARDIA OFTEN IN THE 40'S SOMETIMES 30'S
[2018-12-28 11:36] VITALS: BP 141/76
[2018-12-28 16:00] VITALS: BP 157/82
--- NOTE | 2018-12-28 18:08 | NUR ---
PATIENT PROGRESSING BETTER TOWARDS GOALS THIS AFTERNOON. WAS SOMNALENT AND BRADYCARDIC THIS MORNING. MORE ALERT THIS AFTERNOON AND CAN SAY A FEW WORDS. APPETITE IMPROVED. NO VISITORS. PLAN IS FOR DISCHARGE TOMORROW
[2018-12-28 20:00] VITALS: BP 136/81; BP 190/93
[2018-12-29 04:00] VITALS: BP 163/85
--- NOTE | 2018-12-29 06:03 | NUR ---
ASSUMED PT CARE AT 1930. ASSESSMENT COMPLETED CHARTED. PT UNABLE TO MAKE NEEDS KNOWN. [id number]. BEDREST. CAN ANSWER SIMPLE QUESTIONS. PT RESTING IN BED AT THIS TIME. NO C/O PAIN OR DISCOMFORT. WILL CONTINUE TO MONITOR.
[2018-12-29 08:00] VITALS: BP 152/82
--- NOTE | 2018-12-29 10:27 | EKG ---
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1945 Requested By: Dennis Farias Order Number: [id number] MD: Daniel Bravo Measurements Intervals [place] Rate: 56 P: -18 MT: 346 QRS: 13 QRSD: 99 T: 20 QT: 432 QTc: 417 Interpretive Statements Sinus bradycardia Prolonged MT interval Probable septal infarct, old Compared to ECG 12/25/2018 16:23:06 Sinus tachycardia no longer present Prolonged QT interval no longer present Myocardial infarct finding still present Electronically Signed On 12-29-2018 10:26:52 CDT by Daniel Bravo [email or web address] <ELECTRONICALLY SIGNED> By: Daniel Bravo MD, [facility] 12/29/18 1026 1531 1531 Daniel Bravo MD, [facility] /EPI
[2018-12-29 12:11] VITALS: BP 174/77
[2018-12-29] MEDS ORDERED: CEFDINIR300 MG PO (14:51)
[2018-12-29 14:52] VITALS: BP 174/77
--- NOTE | 2018-12-29 15:02 | NUR ---
Pt is a LTC resident at [facility], discharging back today. Updated Hayley at [facility], Faxed dc orders. Chart copied. Nurse report number is [phone]. 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 in room and aware of disposition.
--- NOTE | 2018-12-29 16:11 | NUR ---
REPORT CALLED TO [facility]. PT'S UPDATED ON PLAN TO TRANSFER
== END 2018-12-29 16:24 | DRG 871 ==
LOC: M.ERS 15:42 → M.TBA-ER 17:33 → M.2W 17:33
PROVIDERS: Emergency Medicine Emergency Medical Services; ADMIT Family Medicine
DX: A41.9 Sepsis, unspecified organism (principal); G93.41 Metabolic encephalopathy; N17.0 Acute kidney failure with tubular necrosis; N39.0 Urinary tract infection, site not specified; I50.32 Chronic diastolic (congestive) heart failure; I13.0 Hypertensive heart and chronic kidney disease with heart failure and stage 1 through stage 4 chronic kidney disease, or unspecified chronic kidney disease; J96.10 Chronic respiratory failure, unspecified whether with hypoxia or hypercapnia; I69.352 Hemiplegia and hemiparesis following cerebral infarction affecting left dominant side; R65.20 Severe sepsis without septic shock; J10.1 Influenza due to other identified influenza virus with other respiratory manifestations; R00.1 Bradycardia, unspecified; N18.3 Chronic kidney disease, stage 3 (moderate); I69.320 Aphasia following cerebral infarction; Z87.891 Personal history of nicotine dependence; Z79.01 Long term (current) use of anticoagulants; Z79.82 Long term (current) use of aspirin; Z79.899 Other long term (current) drug therapy; F03.90 Unspecified dementia, unspecified severity, without behavioral disturbance, psychotic disturbance, mood disturbance, and anxiety